=== PATIENT | male | born 2000 | race Caucasian/White ===

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

== ENCOUNTER 2021-04-12 06:33 | Emergency (ER) | payer BC, SELFPAY ==
[2021-04-12 06:35] VITALS: BP 129/78; PULSE 85; RESP 15; TEMP 36.9; O2SAT 95; BMI 21.9
[2021-04-12 06:38] VITALS: BP 129/78; PULSE 85; RESP 15; TEMP 36.9; O2SAT 95
--- NOTE | 2021-04-12 07:13 | CT_ITS ---
STUDY: CT SOFT TISSUE NECK WITH CONTRAST REASON FOR EXAM: Male, 20 years old. Odynophagia. Fever. Sore throat. Elevated white cell count. History of prior tonsillectomy. RADIATION DOSAGE (If Supplied By Facility): CTDIvol = ( 18.35 ) mGy, DLP = ( 559.31 ) mGycm TECHNIQUE: The patient was scanned in a multi-detector CT scanner. High resolution transaxial imaging was performed following intravenous administration of IV 75mL Isovue-370. Sagittal and coronal images were reconstructed. Individualized dose optimization techniques were used for this CT. COMPARISON: None. FINDINGS: Normal bilateral parotid glands. Normal bilateral lining inserter spaces. Normal bilateral parapharyngeal spaces. Normal bilateral carotid spaces. Normal bilateral sublingual and submandibular glands and spaces. Normal visualized nasopharynx. Normal retropharyngeal space. Normal perivertebral space. There is enlargement of the palatine tonsils bilaterally. There is a 1.1 cm x 1.4 cm well-defined abscess in the right palatine tonsil. There is evidence of inhomogeneous density within the left palatine tonsil although no circumscribed abscess is seen. There is also evidence of asymmetrical thickening of the tissues on the left side of the hypopharynx. An inflammatory process should be ruled out. The visualized cervical lymph nodes (levels I-) are within normal size limits, and maintain normal morphology. There is no demonstrated solid or cystic mass lesion. There is no abnormal contrast enhancement. Normal epiglottis, bilateral vallecula and hypopharynx. The pre-epiglottic and paraglottic adipose spaces are normal. Normal visualized bilateral piriform sinuses, aryepiglottic folds, vocal cords, and arytenoid-cricoid articulations. Normal subglottic trachea. Normal bilateral lobes of the thyroid gland. Normal visualized pulmonary apices. Normal visualized paranasal sinuses. Normal visualized cervical spine. CT/Soft Tissue Neck WITH Contrast IMPRESSION: Enlargement of both palatine tonsils more prominent on the right side with evidence of a 1.1cmx 1.4 cm well-circumscribed abscess in the right tonsil. Asymmetrical thickening of the left side of the hypopharynx suggestive of inflammatory process. Electronically Signed: Axel William MD at 8:52 EDT , Service support ,
--- NOTE | 2021-04-12 07:15 | EDS_ITS ---
HPI HPI - URI History of Present Illness Chief Complaint: Sore Throat Informant: patient and parent Onset/Context/Timing Onset: Days (3) Context: Sudden Onset Timing: Continuous Quality: Swollen Location: Throat Worsened by: Swallowing, Eating Solids and Drinking Liquids Associated Symptoms Associated Symptoms: Positive for Headache, Myalgias and Nausea; Negative for Nasal Congestion, Sinus Pressure, Vomiting, Diarrhea, Shortness of Breath, Chest Pain, Nonproductive cough, Hemoptysis and Productive Cough Narrative Narrative: Patient presents with a sore throat that has been constant for the past 3 days. Patient states he was at work when it began. Patient states it began rather suddenly but has been constant. Patient states his pain is worse with swallowing. Patient states he feels like there is swelling and drainage in the back of his throat. Patient has been taking Tylenol and ibuprofen which has been helping with the fevers. Patient had a fever of up to 102 at home. Patient admits to some general myalgias and nausea. Patient also admits to a headache. Patient denies any cough. ROS ROS ED Constitutional Constitutional ED: Reports fever(s); Denies chills Eyes Eyes: Denies blurry vision or change in vision ENT ENT ED: Reports sore throat; Denies rhinorrhea Cardiovascular Cardiovascular: Denies chest pain or palpitations Respiratory/Chest Respiratory/Chest: Denies cough or dyspnea Gastrointestinal Gastrointestinal: Reports nausea; Denies vomiting Genitourinary Genitourinary ED: Denies dysuria or hematuria Musculoskeletal Musculoskeletal: Reports back pain, myalgias and neck pain Integumentary Denies abscess or rash Neurologic Neurologic: Reports headache(s); Denies weakness Allergic/Immunologic Allergic/Immunologic ED: Denies mouth swelling or urticaria [facility] Medical History (Updated 04/12/21 @ 09:[address] Amaury Bauer, DO) ACL tear ADHD Home Medications clindamycin HCl [Cleocin HCl] 300 mg PO Q6H #40 capsule 04/12/21 [Rx Last Taken Unknown] dexamethasone 6 mg PO DAILY #7 tab 04/12/21 [Rx Last Taken Unknown] lisdexamfetamine [Vyvanse] 60 mg PO DAILY 04/12/21 [History Last Taken Unknown] Allergy/AdvReac Type Severity Reaction Status Date / Time amoxicillin Allergy Rash Verified 12/16/18 23:08 Surgical History History of tonsillectomy Social History Smoking Status: Never smoker alcohol intake: never substance use type: does not use EXAM Physical Exam Const Vital Signs: 04/12/21 06:35 04/12/21 06:38 04/12/21 08:58 Temperature 98.4 F 98.4 F 98.4 F Temperature Source Temporal Temporal Oral Pulse Rate 85 85 53 L Respiratory Rate 15 15 14 Blood Pressure 129/78 H 129/78 H 115/59 L Blood Pressure Mean 95 95 77 Pulse Ox 95 95 99 Oxygen Delivery Method Room Air Room Air Room Air Positive well nourished and well developed General Appearance ED: well developed HEENT Reports moist mucous membranes normocephalic and atraumatic Throat: posterior oropharynx abnormal Positive for erythema Eyes PERRL and EOMs intact bilaterally Neck supple General: lymphadenopathy anterior cervical tender Resp normal respiratory effort and clear to auscultation bilaterally Cardio no murmurs Rate: regular rate Rhythm: regular rhythm GI non-tender Palpation: soft Neuro oriented x3, CN's II-XII intact bilaterally and no sensory deficits noted Sensorium / Orientation: alert Motor Exam: strength 5/5 throughout Psych mental status grossly normal MDM MDM MDM Narrative Medical decision making narrative: Patient was given IV fluids. CBC shows a leukocytosis of 14.8. Basic metabolic profile showed a mild hypokalemia of 3.1. CT scan of the soft tissue neck was obtained. There is a 1.1 x 1.4 cm abscess in the right tonsil. There is thickening of the left hypopharynx. Patient was given a dose of Solu-Medrol here. Patient was given a dose of clindamycin because he is allergic to amoxicillin. Patient was given prescriptions for Decadron and clindamycin. Patient was instructed to follow-up with ENT in 3 to 5 days. Patient was instructed to return if worse in any way. Patient understood and was agreeable with the plan. All questions were answered. Lab Data Attestation: I reviewed the patient's lab results. Labs: Laboratory Results - last 24 hr 04/12/21 04/12/21 07:45 07:45 WBC 14.8 H RBC 4.76 Hgb 14.0 Hct 42.0 MCV 88.2 MCH 29.4 MCHC 33.3 RDW Std Deviation 39.2 RDW Coeff of Kevin 12.0 Plt Count 194 MPV 10.6 Immature Gran % (Auto) 0.900 Neut % (Auto) 82.5 H Lymph % (Auto) 7.0 L Whitfield % (Auto) 9.0 Eos % (Auto) 0.3 Baso % (Auto) 0.3 Absolute Neuts (auto) 12.2 H Absolute Lymphs (auto) 1.04 Nucleated RBC % 0 Sodium 136 Potassium 3.1 L Chloride 102 Carbon Dioxide 27.0 Anion Gap 7 BUN 14 Creatinine 1.08 Estim Creat Clear Calc 129.48 Est GFR (MDRD) Af Amer 111 Est GFR (MDRD) Non-Af 92 BUN/Creatinine Ratio 13.0 Glucose 129 H Calcium 8.7 Radiography Diagnostic Testing: Radiology Impression Soft Tissue Neck CT 04/12/21 07:13 IMPRESSION: Enlargement of both palatine tonsils more prominent on the right side with evidence of a 1.1cmx 1.4 cm well-circumscribed abscess in the right tonsil. Asymmetrical thickening of the left side of the hypopharynx suggestive of inflammatory process. Electronically Signed: Axel William MD at 8:52 EDT , Service support , Discharge Plan Triage Chief Complaint: Sore Throat ED Provider: Amaury Bauer Dx/Rx/DC Orders Clinical Impression: Abscess, peritonsillar Instructions: ED Peritonsillar Abscess Prescriptions: New clindamycin HCl [Cleocin HCl] 300 MG capsule 300 mg PO Q6H Qty: 40 RF: 0 dexamethasone 6 MG tablet 6 mg PO DAILY Qty: 7 RF: 0 No Action Vyvanse 60 mg tablet,chewable 60 mg PO DAILY RF: 0 Primary Care Provider: Ricky Yang Referrals: Amaury Olivarez MD [STAFF PHYSICIAN] - 3-5 Days Ricky Yang DO [Primary Care Provider] - Disposition Disposition: Home, Self Care
[2021-04-12] MEDS: 0.9% Normal Saline 1,000 ML 1000 ML IV (07:41)
[2021-04-12 07:59] LABS: Absolute Lymphocyte Count 1.04 X10^3/uL (0.83-4.51); Absolute Neutrophil Count 12.2 X10^3/uL (2.0-7.7); Basophil# 0.04 X10^3/uL; Basophil% 0.3 % (0-1); Eosinophil# 0.04 X10^3/uL; Eosinophils% 0.3 % (0-5); Lymphocyte # 1.04 X10^3/ul (0.83-4.51); Mean Corp Hgb Conc 33.3 g/dL (32-36); Mean Corpuscular Hgb 29.4 pg (27.0-32.0); Mean Corpuscular Volume 88.2 fL (80-94); Mean Platelet Vol. 10.6 fl (6.2-12.0); Monocyte# 1.34 X10^3/uL; NRBC Flagged by Analyzer 0 % (0-5); Neutrophil # 12.22 X10^3/uL (2.7-7.7); Neutrophil % 82.5 % (47-70); Platelet Count 194 K/mm3 (150-450); RBC Distribution Width SD 39.2 fl (35.1-43.9); Red Blood Count 4.76 M/mm3 (4.6-6.2); White Blood Count 14.8 K/mm3 (4.4-11.0)
[2021-04-12 08:12] LABS: Anion Gap 7 (5-15); BUN 14 mg/dL (7-18); Calcium,Total 8.7 mg/dL (8.5-10.1); Chloride 102 mmol/L (98-107); Creatinine, Serum 1.08 mg/dL (0.70-1.30); EST Glomerular Filtration Rate 92 mL/min (>60); Est Glom Filt Rate - Afr Amer 111 mL/min (>60); Estimated Creatinine Clearance 129.48 ml/min; Glucose 129 mg/dL (74-106); Potassium 3.1 mmol/L (3.5-5.1); Sodium Level 136 mmol/L (136-145)
[2021-04-12 08:58] VITALS: BP 115/59; PULSE 53; RESP 14; TEMP 36.9; O2SAT 99
[2021-04-12] MEDS: MethylPREDNISolone 125 MG/2 ML Vial 60 MG IV (09:01)
== END 2021-04-12 10:47 | disposition home or self-care (01) ==
PROVIDERS: Emergency Provider Emergency Medicine; PCP Student in an Organized Health Care Education/Training Program
DX: J36 Peritonsillar abscess (principal); E87.6 Hypokalemia; F90.9 Attention-deficit hyperactivity disorder, unspecified type; Z79.899 Other long term (current) drug therapy
CPT/HCPCS: 70491; 80048; 85025; 87880; 96361; 96365; 96374; 99283; J7030; Q9967; A4216

== ENCOUNTER 2023-02-18 15:29 | Emergency (ER) | payer BC, SELFPAY ==
[2023-02-18 15:30] VITALS: BP 149/88; PULSE 90; RESP 18; TEMP 36.7; O2SAT 99; BMI 24.1
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
== END 2023-02-18 17:33 | disposition home or self-care (01) ==
PROVIDERS: Emergency Provider Student in an Organized Health Care Education/Training Program; PCP Student in an Organized Health Care Education/Training Program; Visit Provider Student in an Organized Health Care Education/Training Program
DX: H11.32 Conjunctival hemorrhage, left eye (principal); Y04.8XXA Assault by other bodily force, initial encounter; S00.83XA Contusion of other part of head, initial encounter; F90.9 Attention-deficit hyperactivity disorder, unspecified type; Z79.899 Other long term (current) drug therapy
CPT/HCPCS: 70450; 70486; 99283